=== PATIENT | female | born 1990 | race Asian ===

== ENCOUNTER 2021-03-14 22:46 | Emergency (ER) | payer OTHER ==
[~2021-03-14] VITALS: Ht 160 cm; Wt 49.9 kg
[2021-03-14 22:46] VITALS: TEMP 98.7
[2021-03-15 03:09] VITALS: BP 121/82
== END 2021-03-15 03:11 | disposition home or self-care (01) ==
LOC: ED 23:08
DX: S30.1XXA Contusion of abdominal wall, initial encounter (principal); S20.213A Contusion of bilateral front wall of thorax, initial encounter; M54.2 Cervicalgia; M79.18 Myalgia, other site; V89.2XXA Person injured in unspecified motor-vehicle accident, traffic, initial encounter; Y92.410 Unspecified street and highway as the place of occurrence of the external cause
CPT/HCPCS: 84702; 96374; 99284; J1885

== ENCOUNTER 2023-03-09 21:02 | Emergency (ER) | payer OTHER ==
[~2023-03-09] VITALS: Ht 160 cm; Wt 52.2 kg
[2023-03-09 21:16] VITALS: TEMP 97.7
[2023-03-09 22:00] LABS: PLATELET COUNT 275 K/uL (152-353)
[2023-03-09 23:02] LABS: POTASSIUM 3.5 mmol/L (3.6-5.2)
[2023-03-10 01:05] VITALS: BP 108/66
== END 2023-03-10 01:05 | disposition home or self-care (01) ==
LOC: ED 21:02
PROVIDERS: Emergency Medicine Emergency Medical Services
DX: E86.0 Dehydration (principal); F17.210 Nicotine dependence, cigarettes, uncomplicated; Z33.1 Pregnant state, incidental; F12.90 Cannabis use, unspecified, uncomplicated
CPT/HCPCS: 80053; 80307; 81002; 81025; 82150; 83690; 83735; 85027; 96374; 96375; 99284; J2405; J3490

== ENCOUNTER 2023-04-11 11:42 | Emergency (ER) | payer OTHER ==
[~2023-04-11] VITALS: Ht 160 cm; Wt 49.2 kg
[2023-04-11 11:50] VITALS: TEMP 100.8
[2023-04-11 12:30] LABS: PLATELET COUNT 159 K/uL (152-353)
[2023-04-11 13:11] VITALS: BP 105/54
== END 2023-04-11 13:11 | disposition home or self-care (01) ==
LOC: ED 11:42
PROVIDERS: Family Medicine
DX: J10.1 Influenza due to other identified influenza virus with other respiratory manifestations (principal); R05.9 Cough, unspecified; R11.2 Nausea with vomiting, unspecified
CPT/HCPCS: 81002; 85027; 87502; 87635; 87651; 99283; U0003